=== PATIENT | female | born 1945 | race Caucasian/White ===

== ENCOUNTER 2017-11-09 16:32 | Emergency (ER) | payer MEDICARE, OTHER ==
[2017-11-09 17:00] VITALS: RESP 18; TEMP 97.8; O2SAT 98
[2017-11-09 18:06] VITALS: BP 135/76; PULSE 74
== END 2017-11-09 18:05 | disposition home or self-care (01) | DRG 185 ==
LOC: ED 16:32
DX: S22.42XA Multiple fractures of ribs, left side, initial encounter for closed fracture (principal)
CPT/HCPCS: 71101; 99282; 99283

== ENCOUNTER 2017-11-25 16:15 | Observation (INO) | payer MEDICARE, OTHER ==
[2017-11-25] MEDS: ENOXAPARIN 100 MG SOL SC SCH (21:03)
[2017-11-25] MEDS ORDERED: WARFARIN SODIUM 5 MG TAB PO ONE (22:56)
[2017-11-25] MEDS ORDERED: WARFARIN SODIUM 5 MG TAB PO SCH (23:00)
[2017-11-25] MEDS: APAP/HYDROCODONE 1 EACH TABLET PO PRN (23:04)
[2017-11-25] MEDS ORDERED: PATIENT EDUCATION 1 MISC PRN (23:12)
[2017-11-26 08:14] LABS: INR 1.02 (0.86-1.12)
[2017-11-26 09:59] VITALS: BP 97/60; PULSE 66; RESP 18; TEMP 97; O2SAT 93
[2017-11-26] MEDS: ENOXAPARIN 100 MG SOL SC SCH (11:04)
[2017-11-26] MEDS ORDERED: PNEUMOC 13-VAL CONJ-DIP CRM/PF 0.5 ML SYRINGE IM ONE (14:27)
[2017-11-26] MEDS ORDERED: INFLUENZA HIGH DOSE VACCINE 0.5 ML SUS IM ONE (14:27)
[2017-11-26] MEDS: APAP/HYDROCODONE 1 EACH TABLET PO PRN (15:40)
[2017-11-26] MEDS ORDERED: PATIENT EDUCATION 1 MISC PRN (16:14)
[2017-11-28] MEDS ORDERED: PATIENT EDUCATION 1 MISC PRN (16:16)
== END 2017-11-26 15:55 | disposition home or self-care (01) | DRG 301 ==
LOC: EDSTATUS 16:15 → ACUTE CARE 18:00 → UNDOADMIN 18:00 → ACUTE CARE 18:00 → UNDODISIN 11-26 15:55
PROVIDERS: ADMIT Family Medicine; ATTEND Family Medicine
DX: I82.402 Acute embolism and thrombosis of unspecified deep veins of left lower extremity (principal)
CPT/HCPCS: 36415; 85610; 90662; 90670; J1650; A9270-GY; G0008